=== PATIENT | female | born 1980 | race American Indian/Alaskan Native ===

== ENCOUNTER 2018-03-06 16:50 | Emergency (ER) | payer OTHER ==
[2018-03-06 16:56] VITALS: BMI 32.9
[2018-03-06 17:03] VITALS: O2SAT 98
--- NOTE | 2018-03-06 17:56 | RAD ---
Date of service: 03/06/2018 PROCEDURE: Left Knee Radiographs. HISTORY: Pain. COMPARISON: None. FINDINGS: BONES: No acute fracture or destructive bony lesion identified. JOINTS: No subluxation or dislocation. Limited medial compartment joint space narrowing may reflect an element of limited degenerative joint disease. JOINT EFFUSION: None. OTHER FINDINGS: None. IMPRESSION: Limited medial compartment degenerative joint disease. No acute fracture or dislocation identified. No destructive bony lesion appreciable.
--- NOTE | 2018-03-06 18:08 | C.PDOC ---
History Of Present Illness 38 year old female presents to the ED for evaluation of left knee and right arm pain which began after a trip and fall three days ago. Patient states she was at work and she tripped over a metal pole and fell onto both of her knees and her right arm. Patient "thought it was just a bruise" but the pain persisted. "It just feels sore." She denies head injury, LOC, nausea, vomiting, extremity numbness/weakness. Time Seen by Provider: 03/06/18 17:06 Chief Complaint (Nursing): Lower Extremity Problem/Injury History Per: Patient History/Exam Limitations: no limitations Onset/Duration Of Symptoms: Days (3) Current Symptoms Are (Timing): Still Present Recent travel outside of the [place]: No Additional History Per: Patient - Knee Description Of Injury: Fell Past Medical History Reviewed: Historical Data, Nursing Documentation, Vital Signs Vital Signs: Last Vital Signs Temp 97.7 F 03/06/18 16:56 Pulse 91 H 03/06/18 16:56 Resp 18 03/06/18 16:56 BP 135/92 H 03/06/18 16:56 Pulse Ox 98 03/06/18 16:56 - Medical History PMH: No Chronic Diseases Surgical History: No Surg Hx Family History: States: Unknown Family Hx - Social History Hx Alcohol Use: No Hx Substance Use: No - Immunization History Hx Tetanus Toxoid Vaccination: No Hx Influenza Vaccination: No Hx Pneumococcal Vaccination: No Review Of Systems Gastrointestinal: Negative for: Nausea, Vomiting Musculoskeletal: Positive for: Other (left knee and right arm pain ) Neurological: Negative for: Weakness, Numbness, Other (head injury ) Physical Exam - Physical Exam Appears: Non-toxic, No Acute Distress Skin: Warm, Dry, Other (healed abrasion to left knee ) Head: Atraumatic, Normacephalic Eye(s): bilateral: Normal Inspection, EOMI Nose: Normal Oral Mucosa: Moist Neck: Normal ROM, Supple Chest: Symmetrical Respiratory: No Accessory Muscle Use Extremity: Normal ROM, Tenderness (to anterior aspects of bilateral knees and posterior aspect of right upper arm ), Capillary Refill (less than 2 seconds ), No Deformity, No Swelling Pulses: Left Radial: Normal, Right Radial: Normal Neurological/Psych: Oriented x3, Normal Speech, Normal Cognition, Normal Sensation ED Course And Treatment O2 Sat by Pulse Oximetry: 98 (on RA) Pulse Ox Interpretation: Normal - Other Rad left knee XR X-Ray: Viewed By Me, Read By Radiologist Interpretation: PROCEDURE: Left Knee Radiographs. HISTORY: Pain. COMPARISON: None. FINDINGS: BONES: No acute fracture or destructive bony lesion identified. JOINTS: No subluxation or dislocation. Limited medial compartment joint space narrowing may reflect an element of limited degenerative joint disease. JOINT EFFUSION: None. OTHER FINDINGS: None. IMPRESSION: Limited medial compartment degenerative joint disease. No acute fracture or dislocation identified. No destructive bony lesion appreciable. Progress Note: Patient declined pain medication and requests an x-ray of her left knee. Left knee XR ordered. Results show no fracture or dislocation. Knee brace was applied by helpdesk technician . Patient is instructed on RICE and is advised to follow up with orthopedic care within 1-2 days for further evaluation. Disposition - Disposition Referrals: Lowell Guerrero MD [Staff Provider] - Disposition: HOME/ ROUTINE Disposition Time: 18:08 Condition: STABLE Additional Instructions: Follow up with your bone doctor in 2-3 days for further evaluation. Take medi cations as prescribed. Return to the emergency department at any time if symptoms persist or worsen. Prescriptions: Ibuprofen [Motrin Tab] 800 mg PO TID PRN #20 tab PRN Reason: Pain, Mild (1-3) Instructions: Knee Pain (DC) Forms: [facility] ([place] Citizen) - Clinical Impression Clinical Impression: Knee contusion - PA / CAFETERIA DIRECTOR / Resident Statement MD/DO has reviewed & agrees with the documentation as recorded. - Scribe Statement The provider has reviewed the documentation as recorded by the Scribe (Kathy Kelley) All medical record entries made by the Scribe were at my direction and personally dictated by me. I have reviewed the chart and agree that the record accurately reflects my personal performance of the history, physical exam, medical decision making, and the department course for this patient. I have also personally directed, reviewed, and agree with the discharge instructions and disposition.
[2018-03-06 18:16] VITALS: BP 137/97; PULSE 80; RESP 19; TEMP 98
== END 2018-03-06 18:27 | disposition home or self-care (01) ==
LOC: C.ER 16:50
DX: S80.02XA Contusion of left knee, initial encounter (principal); W01.0XXA Fall on same level from slipping, tripping and stumbling without subsequent striking against object, initial encounter

== ENCOUNTER 2018-05-04 12:36 | Emergency (ER) | payer OTHER ==
[2018-05-04 12:36] VITALS: BMI 32.9
--- NOTE | 2018-05-04 14:19 | CT ---
Date of service: 05/04/2018 PROCEDURE: CT HEAD WITHOUT CONTRAST. HISTORY: left eye blurriness and head pain COMPARISON: Comparison is made to the previous study dated 01/10/2015 TECHNIQUE: Axial computed tomography images were obtained through the head/brain without intravenous contrast. Radiation dose: Total exam DLP = 1077.99 mGy-cm. This CT exam was performed using one or more of the following dose reduction techniques: Automated exposure control, adjustment of the mA and/or kV according to patient size, and/or use of iterative reconstruction technique. FINDINGS: HEMORRHAGE: No intracranial hemorrhage. BRAIN: No mass effect or edema. No atrophy or chronic microvascular ischemic changes. VENTRICLES: Unremarkable. No hydrocephalus. CALVARIUM: Unremarkable. PARANASAL SINUSES: Unremarkable as visualized. No significant inflammatory changes. MASTOID AIR CELLS: Unremarkable as visualized. No inflammatory changes. OTHER FINDINGS: None. IMPRESSION: No evidence of acute intracranial hemorrhage territorial infarct mass effect or midline shift.
[2018-05-04 14:42] VITALS: BP 137/95; PULSE 86; RESP 18; TEMP 98.2; O2SAT 100
--- NOTE | 2018-05-04 14:42 | C.PDOC ---
History Of Present Illness Patient is a 38 year old female, with a PMHx of sinusitis, who presents to the ED c/o left sided blurry vision and a 6/10 left sided headache for the past 4 days. Patient states that she occasionally takes Claritin D for her congestion. She states that she did see her PMD who referred her to an forming machine adjuster. The forming machine adjuster then later the patient to a retina specialist. Patient states that she had pain so she came into the ED. Patient denies any nausea, vomiting, fever, chills, or other medical complaints at the present moment. Time Seen by Provider: 05/04/18 13:04 Chief Complaint (Nursing): Eye Problem History Per: Patient History/Exam Limitations: no limitations Onset/Duration Of Symptoms: Days (4) Quality: "Pain" (left sided 6/10 LUEVANO) Associated Symptoms: Other (Blurry vision left eye) Recent travel outside of the [place]: No Additional History Per: Patient Past Medical History Reviewed: Historical Data, Nursing Documentation, Vital Signs Vital Signs: Last Vital Signs Temp 98.4 F 05/04/18 12:39 Pulse 100 H 05/04/18 12:39 Resp 16 05/04/18 12:39 BP 139/105 H 05/04/18 12:39 Pulse Ox 100 05/04/18 12:39 - Medical History PMH: No Chronic Diseases Surgical History: No Surg Hx Family History: States: Unknown Family Hx - Social History Hx Alcohol Use: No Hx Substance Use: No - Immunization History Hx Tetanus Toxoid Vaccination: No Hx Influenza Vaccination: No Hx Pneumococcal Vaccination: No Review Of Systems Constitutional: Negative for: Fever, Chills Eyes: Positive for: Other (left eye blurry vision ) Gastrointestinal: Negative for: Nausea, Vomiting Neurological: Positive for: Headache (left frontal and left occipital 6/10 LUEVANO) Physical Exam - Physical Exam Appears: Non-toxic, No Acute Distress Skin: Normal Color, Warm, Dry Head: Atraumatic, Normacephalic Eye(s): bilateral: EOMI, left: Other (Can see well laterally and medially, but sensation of being blurry when looking forward ) Oral Mucosa: Moist Neck: Normal ROM, Supple Chest: Symmetrical, No Deformity Cardiovascular: Rhythm Regular, No Murmur Respiratory: Normal Breath Sounds Gastrointestinal/Abdominal: Soft, No Tenderness, No Guarding, No Rebound Extremity: Normal ROM Neurological/Psych: Oriented x3, Normal Speech, Normal Cognition ED Course And Treatment O2 Sat by Pulse Oximetry: 100 (on RA) Pulse Ox Interpretation: Normal - CT Scan/US CT Head Other Rad Studies (CT/US): Read By Radiologist, Radiology Report Reviewed CT/US Interpretation: IMPRESSION: No evidence of acute intracranial hemorrhage territorial infarct mass effect or midline shift. Medical Decision Making Medical Decision Making: Plan: CT Head ordered and reviewed. Read normal. Spoke to forming machine adjuster who said she did not find any eye pathology and pressures were normal. Pupils were dilated and nothing was found. Told patient to avoid Claritin D because it has an effect on the eye accommodating mechanisms. Impression: Rare side effect from Claritin D vs stroke vs sinusitis vs MS Disposition Counseled Patient/Family Regarding: Studies Performed, Need For Followup - Disposition Disposition: HOME/ ROUTINE Disposition Time: 14:40 Condition: STABLE Additional Instructions: Follow up with your assistive technology specialist as indicated. Take Motrin for pain. Instructions: Double Vision (DC) Forms: General Discharge Instructions, [facility] ([place]ian), Work Excuse - POA Present On Arrival: None - Clinical Impression Clinical Impression: Blurry vision, left eye - Scribe Statement The provider has reviewed the documentation as recorded by the Basia Yuan All medical record entries made by the Basia were at my direction and personally dictated by me. I have reviewed the chart and agree that the record accurately reflects my personal performance of the history, physical exam, medical decision making, and the department course for this patient. I have also personally directed, reviewed, and agree with the discharge instructions and disposition.
== END 2018-05-04 14:45 | disposition home or self-care (01) ==
LOC: C.ER 12:36
DX: H53.8 Other visual disturbances (principal)